=== PATIENT | male | born 1950 ===

== ENCOUNTER → 2021-03-19 | Outpatient (CLI) | payer MEDICARE, OTHER ==
[~2021-03-19] MED LIST: ALDACTONE 25MG25 MG PO; ATORVASTATIN CA20 MG PO; ECOTRIN81 MG PO; EFFIENT10 MG PO; LASIX40 MG PO; LISINOPRIL5 MG PO; LOPRESSOR50 MG PO; METOPROLOL SUCC25 MG PO; MUCINEX FAST-M180 M4 PO; NOVOLOG MI100 UNIT/1 SC; OMEPRAZOLE40 MG PO; PROTONIX40 MG PO; REQUIP0.5 MG PO; ROPINIROLE HCL1 MG PO; TRIHEXYPHENIDYL2 MG PO
== END ==
LOC: SLEEP 14:15
DX: G47.33 Obstructive sleep apnea (adult) (pediatric) (principal); G47.37 Central sleep apnea in conditions classified elsewhere
CPT/HCPCS: 95811